=== PATIENT | female | born 1940 | race Hispanic/Latino ===

== ENCOUNTER 2023-09-01 02:16 | Inpatient (IN) | payer MEDICAID, SELFPAY ==
[2023-09-01 03:33] VITALS: BMI 22.6
[2023-09-01] MEDS: Morphine 4 MG/ML VIAL SLOW IVP PRN ×4 (03:51→21:16)
[2023-09-01] MEDS: Sodium Chloride 0.9% 1,000 ML IV SCH ×2 (03:55→15:30)
[2023-09-01] MEDS ORDERED: Ipratropium/Albuterol 3 ML NEB NEB PRN (08:02)
[2023-09-01] MEDS ORDERED: Dextrose 50% Abboject 50 ML SYRINGE SLOW IVP PRN (08:02)
[2023-09-01] MEDS ORDERED: Dextrose 5% in Water 1,000 ML IV PRN (08:02)
[2023-09-01] MEDS ORDERED: Acetaminophen 325 MG TAB PO PRN (08:02)
[2023-09-01] MEDS ORDERED: Glucagon 1 MG/ML KIT IM PRN (08:02)
[2023-09-01] MEDS ORDERED: Ondansetron ODT 4 MG TAB PO PRN (08:02)
[2023-09-01] MEDS ORDERED: FLU VACC QS2023(65UP)/MF59C/PF 60 MCG/0.5 ML SYRINGE IM ONE (09:00)
[2023-09-01 10:06] LABS: #Monocytes 0.8 thou/uL (0.11-0.59); #Neutrophils 6.6 thou/uL (1.40-6.50); %Basophils 0.2 % (0.0-1.0); %Eosinophils 0.1 % (0.0-10.0); %Lymphocytes 11.7 % (21.0-51.0); %Monocytes 9.6 % (0.0-10.0); Hematocrit 30.7 % (36.0-47.0); Hemoglobin 9.7 g/dL (12.0-16.0); Mean Corpuscular HGB CONC 31.6 g/dL (32.0-36.0); Mean Corpuscular Hemoglobin 26.6 pg (27.0-31.0); Mean Corpuscular Volume 84.3 fl (78.0-98.0); Mean Platelet Volume 12.2 fL (7.4-10.4); Platelet Count 157 10x3/uL (130-400); RBC Distribution Width 14.7 % (11.5-14.5); Red Blood Cell (RBC) Count 3.64 mill/uL (4.20-5.40); White Blood Cell (WBC) Count 8.5 10x3/uL (4.8-10.8)
[2023-09-01 10:30] LABS: ALT (SGPT) 86 U/L (8-55); AST (SGOT) 170 U/L (5-34); Albumin 3.5 g/dL (3.4-4.8); Alkaline Phosphatase 227 U/L (40-110); Anion Gap 12 mmol/L (10-20); BUN (Urea Nitrogen) 28 mg/dL (9.8-20.1); Bilirubin, Total 2.3 mg/dL (0.2-1.2); Calc. Creatinine Clearance 30 mL/min (70-130); Calcium 8.7 mg/dL (7.8-10.44); Carbon Dioxide 25 mmol/L (23-31); Chloride 106 mmol/L (98-107); Estimated GFR 36; Globulin 2.4 g/dL (2.4-3.5); Glucose 95 mg/dL (83-110); Potassium 4.1 mmol/L (3.5-5.1); Protein, Total 5.9 g/dL (5.8-8.1); Sodium 139 mmol/L (136-145)
[2023-09-01] MEDS ORDERED: TETANUS, DIPHTHERIA TOX,ADULT (TDVAX) 0.5 ML VIAL IM ONE (12:00)
[2023-09-01] MEDS ORDERED: Labetalol HCl 100 MG/20 ML VIAL SLOW IVP PRN (18:43)
[2023-09-01] MEDS ORDERED: Metoprolol Tartrate 5 MG (5 mL) VIAL IVP PRN (19:59)
[2023-09-01 20:26] LABS: #Monocytes 0.9 thou/uL (0.11-0.59); %Basophils 0.1 % (0.0-1.0); %Eosinophils 0.1 % (0.0-10.0); %Lymphocytes 8.3 % (21.0-51.0); %Monocytes 8.9 % (0.0-10.0); %Neutrophils 82.2 % (42.0-75.0); Hematocrit 28.9 % (36.0-47.0); Hemoglobin 9.2 g/dL (12.0-16.0); Mean Corpuscular HGB CONC 31.8 g/dL (32.0-36.0); Mean Corpuscular Volume 84.8 fl (78.0-98.0); Platelet Count 146 10x3/uL (130-400); RBC Distribution Width 14.8 % (11.5-14.5); Red Blood Cell (RBC) Count 3.41 mill/uL (4.20-5.40); White Blood Cell (WBC) Count 9.8 10x3/uL (4.8-10.8)
[2023-09-01 20:46] LABS: Lactic Acid 0.8 mmol/L (0.5-2.2)
[2023-09-01 20:56] LABS: Anion Gap 13 mmol/L (10-20); BUN (Urea Nitrogen) 29 mg/dL (9.8-20.1); Calc. Creatinine Clearance 32 mL/min (70-130); Calcium 8.5 mg/dL (7.8-10.44); Carbon Dioxide 22 mmol/L (23-31); Chloride 109 mmol/L (98-107); Estimated GFR 40; Glucose 91 mg/dL (83-110); Potassium 4.1 mmol/L (3.5-5.1); Sodium 140 mmol/L (136-145)
[2023-09-01] MEDS ORDERED: OLANZapine 10 MG VIAL IM SCH (21:00)
[2023-09-01] MEDS ORDERED: Sterile Water 10 ML VIAL FS SCH (21:15)
[2023-09-01 21:33] LABS: ALT (SGPT) 87 U/L (8-55); AST (SGOT) 90 U/L (5-34); Albumin 3.5 g/dL (3.4-4.8); Alkaline Phosphatase 208 U/L (40-110); Bilirubin, Direct 1.2 mg/dL (0.1-0.3); Bilirubin, Total 2.1 mg/dL (0.2-1.2); Protein, Total 5.7 g/dL (5.8-8.1)
[2023-09-01] MEDS: Atorvastatin Calcium 20 MG TAB PO SCH (21:52)
[2023-09-02] MEDS: Morphine 4 MG/ML VIAL SLOW IVP PRN ×2 (01:03→08:57)
[2023-09-02 04:52] LABS: #Monocytes 0.9 thou/uL (0.11-0.59); #Neutrophils 8.3 thou/uL (1.40-6.50); %Basophils 0.2 % (0.0-1.0); %Eosinophils 0.2 % (0.0-10.0); %Lymphocytes 12.1 % (21.0-51.0); %Monocytes 8.4 % (0.0-10.0); %Neutrophils 78.7 % (42.0-75.0); Hematocrit 30.2 % (36.0-47.0); Hemoglobin 9.4 g/dL (12.0-16.0); Mean Corpuscular HGB CONC 31.1 g/dL (32.0-36.0); Mean Corpuscular Volume 86.8 fl (78.0-98.0); Mean Platelet Volume 12.4 fL (7.4-10.4); Platelet Count 155 10x3/uL (130-400); RBC Distribution Width 15.1 % (11.5-14.5); Red Blood Cell (RBC) Count 3.48 mill/uL (4.20-5.40); White Blood Cell (WBC) Count 10.6 10x3/uL (4.8-10.8)
[2023-09-02 05:07] LABS: Hemoglobin A1c 5.7 % (4.0-6.0)
[2023-09-02 05:27] LABS: ALT (SGPT) 82 U/L (8-55); AST (SGOT) 64 U/L (5-34); Albumin 3.5 g/dL (3.4-4.8); Alkaline Phosphatase 212 U/L (40-110); Anion Gap 13 mmol/L (10-20); BUN (Urea Nitrogen) 31 mg/dL (9.8-20.1); Calc. Creatinine Clearance 32 mL/min (70-130); Calcium 8.6 mg/dL (7.8-10.44); Carbon Dioxide 20 mmol/L (23-31); Cardiac Risk 3.4 (Less than 4.5); Chloride 110 mmol/L (98-107); Cholesterol 182 mg/dl (< 200 Desired); Estimated GFR 40; Globulin 2.4 g/dL (2.4-3.5); Glucose 77 mg/dL (83-110); HDL Cholesterol 54 mg/dL (>60 Neg Risk); Iron Binding Capacity, Total 283 mcg/dL (265-497); LDL Cholesterol, Calculated 107 mg/dL; Potassium 4.3 mmol/L (3.5-5.1); Protein, Total 5.9 g/dL (5.8-8.1); Sodium 139 mmol/L (136-145); Triglycerides 107 mg/dL (Less than 150)
[2023-09-02 05:33] LABS: Bilirubin, Total 1.7 mg/dL (0.2-1.2)
[2023-09-02 05:44] LABS: Ferritin 78.81 ng/mL (10-291); Thyroid Stimulating Hormone 3.0438 uIU/mL (0.35-4.94)
[2023-09-02 05:51] LABS: Iron 26 ug/dL (50-170); Iron Binding Capacity, Total 274 mcg/dL (265-497)
[2023-09-02 06:27] LABS: Iron 24 ug/dL (50-170)
[2023-09-02] MEDS: Aspirin 300 MG Suppository PR SCH (08:56)
[2023-09-02] MEDS: Sodium Chloride 0.9% 1,000 ML IV SCH (09:04)
[2023-09-02 09:55] LABS: Bilirubin Negative (Negative); Blood, Urine Negative (Negative); Clarity Clear (Clear); Glucose, Urine (Dipstick) Normal (Negative); Ketone, Urine 10 mg/dL (Negative); Leukocyte Negative Leu/uL (Negative); Nitrite Negative (Negative); Protein, Urine (Dipstick) Negative (Neg-Trace); RBC/HPF 0-3 HPF (0-3); Specific Gravity, Urine 1.016 (1.002-1.036); Squamous Epithelial None Seen HPF (0-3); Urobilinogen 3 mg/dL (Less than 2); WBC/HPF 0-3 HPF (0-3); pH, Urine 5.5 (5.0-9.0)
[2023-09-02 09:59] LABS: Bacteria/HPF 1+ HPF (None Seen)
[2023-09-02] MEDS ORDERED: Lorazepam 2 MG/ML VIAL SLOW IVP SCH (11:45)
[2023-09-02] MEDS ORDERED: dilTIAZem 125 MG in Sodium Chloride 0.9% 100 ML IVPB SCH (13:30)
[2023-09-02] MEDS: dilTIAZem 125 MG, Admixture Fee 1 EACH in Sodium Chloride 0.9% 100 ML IVPB SCH (14:55)
[2023-09-02] MEDS: Heparin 5,000 UNITS/ML VIAL SC SCH (21:26)
[2023-09-03] MEDS: Atorvastatin Calcium 20 MG TAB PO SCH ×2 (01:09→20:13)
[2023-09-03] MEDS: Sodium Chloride 0.9% 1,000 ML IV SCH ×2 (02:38→15:21)
[2023-09-03] MEDS: Acetaminophen/Codeine 30-300mg Tablet PO PRN ×2 (02:50→11:00)
[2023-09-03 05:06] LABS: #Monocytes 0.6 thou/uL (0.11-0.59); %Basophils 0.1 % (0.0-1.0); %Eosinophils 0.3 % (0.0-10.0); %Lymphocytes 10.7 % (21.0-51.0); %Monocytes 7.2 % (0.0-10.0); %Neutrophils 81.5 % (42.0-75.0); Hematocrit 28.8 % (36.0-47.0); Mean Corpuscular HGB CONC 31.3 g/dL (32.0-36.0); Mean Corpuscular Hemoglobin 26.9 pg (27.0-31.0); Mean Corpuscular Volume 86.2 fl (78.0-98.0); Mean Platelet Volume 12.5 fL (7.4-10.4); Platelet Count 176 10x3/uL (130-400); RBC Distribution Width 15.1 % (11.5-14.5); Red Blood Cell (RBC) Count 3.34 mill/uL (4.20-5.40); White Blood Cell (WBC) Count 8.6 10x3/uL (4.8-10.8)
[2023-09-03 05:25] LABS: Anion Gap 13 mmol/L (10-20); BUN (Urea Nitrogen) 33 mg/dL (9.8-20.1); Calc. Creatinine Clearance 40 mL/min (70-130); Calcium 8.4 mg/dL (7.8-10.44); Carbon Dioxide 21 mmol/L (23-31); Chloride 114 mmol/L (98-107); Estimated GFR 52; Glucose 83 mg/dL (83-110); Potassium 3.9 mmol/L (3.5-5.1); Sodium 144 mmol/L (136-145)
[2023-09-03] MEDS: Aspirin 300 MG Suppository PR SCH (10:17)
[2023-09-03] MEDS: Heparin 5,000 UNITS/ML VIAL SC SCH ×2 (10:17→20:13)
[2023-09-03] MEDS: dilTIAZem 125 MG, Admixture Fee 1 EACH in Sodium Chloride 0.9% 100 ML IVPB SCH (15:20)
[2023-09-03] MEDS: Morphine 4 MG/ML VIAL SLOW IVP PRN (17:42)
[2023-09-03] MEDS: HYDROcodone/Acetaminophen 5/325 mg Tablet PO PRN (20:16)
[2023-09-04] MEDS: Morphine 4 MG/ML VIAL SLOW IVP PRN ×2 (03:20→10:26)
[2023-09-04] MEDS: Sodium Chloride 0.9% 1,000 ML IV SCH ×2 (03:21→17:26)
[2023-09-04] MEDS: Aspirin 300 MG Suppository PR SCH (10:08)
[2023-09-04] MEDS: Heparin 5,000 UNITS/ML VIAL SC SCH ×2 (10:09→21:41)
[2023-09-04] MEDS: dilTIAZem 125 MG, Admixture Fee 1 EACH in Sodium Chloride 0.9% 100 ML IVPB SCH (13:54)
[2023-09-04] MEDS: HYDROcodone/Acetaminophen 5/325 mg Tablet PO PRN (15:13)
[2023-09-04] MEDS: Morphine 2 MG/ML VIAL SLOW IVP PRN (16:21)
[2023-09-04] MEDS ORDERED: Digoxin 0.5 MG/2 ML AMP SLOW IVP SCH ×2 (17:00→18:00)
[2023-09-04] MEDS: Ketorolac Tromethamine 30 MG (1 mL) VIAL IVP PRN (21:40)
[2023-09-04] MEDS: Atorvastatin Calcium 20 MG TAB PO SCH (21:41)
[2023-09-04] MEDS: Ondansetron PF 4 MG/2 ML Vial IVP PRN (23:16)
[2023-09-05] MEDS: HYDROcodone/Acetaminophen 5/325 mg Tablet PO PRN (00:17)
[2023-09-05 01:24] LABS: #Monocytes 0.5 thou/uL (0.11-0.59); #Neutrophils 8.3 thou/uL (1.40-6.50); %Basophils 0.2 % (0.0-1.0); %Eosinophils 0.2 % (0.0-10.0); %Lymphocytes 6.3 % (21.0-51.0); %Monocytes 5.4 % (0.0-10.0); %Neutrophils 87.2 % (42.0-75.0); Hematocrit 29.1 % (36.0-47.0); Hemoglobin 9.1 g/dL (12.0-16.0); Mean Corpuscular HGB CONC 31.3 g/dL (32.0-36.0); Mean Corpuscular Hemoglobin 26.8 pg (27.0-31.0); Mean Corpuscular Volume 85.8 fl (78.0-98.0); Mean Platelet Volume 11.4 fL (7.4-10.4); Platelet Count 200 10x3/uL (130-400); Red Blood Cell (RBC) Count 3.39 mill/uL (4.20-5.40); White Blood Cell (WBC) Count 9.6 10x3/uL (4.8-10.8)
[2023-09-05 02:45] LABS: Anion Gap 20 mmol/L (10-20); BUN (Urea Nitrogen) 18 mg/dL (9.8-20.1); Calc. Creatinine Clearance 49 mL/min (70-130); Calcium 8.7 mg/dL (7.8-10.44); Carbon Dioxide 16 mmol/L (23-31); Chloride 114 mmol/L (98-107); Estimated GFR 68; Glucose 104 mg/dL (83-110); Potassium 3.8 mmol/L (3.5-5.1); Sodium 146 mmol/L (136-145)
[2023-09-05 02:52] LABS: Troponin I 0.168 ng/mL (< 0.028)
[2023-09-05] MEDS: dilTIAZem 125 MG, Admixture Fee 1 EACH in Sodium Chloride 0.9% 100 ML IVPB SCH (03:03)
[2023-09-05] MEDS ORDERED: Nitroglycerin 2% Ointment 1 INCH/1 GM Packet TOP PRN (03:56)
[2023-09-05] MEDS: Morphine 2 MG/ML VIAL SLOW IVP PRN (04:00)
[2023-09-05 05:55] LABS: Critical Call Chem Troponin I NUR.AC18@0554
[2023-09-05] MEDS: Sodium Chloride 0.9% 1,000 ML IV SCH (06:14)
[2023-09-05 07:35] LABS: Critical Call Chem Troponin I RESULT DECREASING; Troponin I 0.231 ng/mL (< 0.028)
[2023-09-05] MEDS: Ketorolac Tromethamine 30 MG (1 mL) VIAL IVP PRN (08:25)
[2023-09-05] MEDS: Morphine 4 MG/ML VIAL SLOW IVP PRN ×3 (10:44→21:38)
[2023-09-05] MEDS: Heparin 5,000 UNITS/ML VIAL SC SCH ×2 (10:45→21:39)
[2023-09-05] MEDS: 1/2 NS w/Potassium 20 mEq 1,000 ML IV SCH ×2 (10:46→22:05)
[2023-09-05] MEDS: Digoxin 0.5 MG/2 ML AMP SLOW IVP SCH (11:42)
[2023-09-05] MEDS: Aspirin 300 MG Suppository PR SCH (13:57)
[2023-09-05] MEDS: Acetaminophen 650 MG Suppository PR SCH ×3 (13:58→21:43)
[2023-09-05] MEDS: Acetaminophen 500 MG TAB PO SCH ×2 (13:58→15:57)
[2023-09-05] MEDS: Atorvastatin Calcium 20 MG TAB PO SCH (21:37)
[2023-09-05] MEDS: Ondansetron PF 4 MG/2 ML Vial IVP PRN (21:39)
[2023-09-06] MEDS: Ketorolac Tromethamine 30 MG (1 mL) VIAL IVP PRN ×2 (03:50→08:39)
[2023-09-06 06:26] LABS: #Eosinphils 0.1 thou/uL (0.0-0.7); #Monocytes 0.4 thou/uL (0.11-0.59); #Neutrophils 7.2 thou/uL (1.40-6.50); %Basophils 0.1 % (0.0-1.0); %Eosinophils 0.7 % (0.0-10.0); %Lymphocytes 8.1 % (21.0-51.0); %Monocytes 5.2 % (0.0-10.0); %Neutrophils 85.5 % (42.0-75.0); Hematocrit 30.8 % (36.0-47.0); Hemoglobin 9.6 g/dL (12.0-16.0); Mean Corpuscular HGB CONC 31.2 g/dL (32.0-36.0); Mean Corpuscular Hemoglobin 26.7 pg (27.0-31.0); Mean Corpuscular Volume 85.8 fl (78.0-98.0); Mean Platelet Volume 11.3 fL (7.4-10.4); Platelet Count 215 10x3/uL (130-400); RBC Distribution Width 14.8 % (11.5-14.5); Red Blood Cell (RBC) Count 3.59 mill/uL (4.20-5.40); White Blood Cell (WBC) Count 8.4 10x3/uL (4.8-10.8)
[2023-09-06 06:36] LABS: ALT (SGPT) 32 U/L (8-55); AST (SGOT) 29 U/L (5-34); Albumin 3.3 g/dL (3.4-4.8); Alkaline Phosphatase 157 U/L (40-110); Anion Gap 18 mmol/L (10-20); BUN (Urea Nitrogen) 19 mg/dL (9.8-20.1); Bilirubin, Total 1.3 mg/dL (0.2-1.2); Calc. Creatinine Clearance 49 mL/min (70-130); Calcium 8.5 mg/dL (7.8-10.44); Carbon Dioxide 16 mmol/L (23-31); Chloride 114 mmol/L (98-107); Estimated GFR 67; Globulin 2.4 g/dL (2.4-3.5); Glucose 78 mg/dL (83-110); Potassium 4.5 mmol/L (3.5-5.1); Protein, Total 5.7 g/dL (5.8-8.1); Sodium 143 mmol/L (136-145)
[2023-09-06] MEDS: Aspirin 300 MG Suppository PR SCH (08:36)
[2023-09-06] MEDS: Acetaminophen 650 MG Suppository PR SCH ×4 (08:37→21:44)
[2023-09-06] MEDS: Digoxin 0.5 MG/2 ML AMP SLOW IVP SCH (08:41)
[2023-09-06] MEDS: Heparin 5,000 UNITS/ML VIAL SC SCH ×2 (08:48→19:56)
[2023-09-06] MEDS: 1/2 NS w/Potassium 20 mEq 1,000 ML IV SCH ×2 (10:46→16:34)
[2023-09-06] MEDS ORDERED: Vasopressin 20 UNITS/ML VIAL ONE (11:43)
[2023-09-06] MEDS ORDERED: Etomidate 40 MG (20 mL) VIAL ONE (11:44)
[2023-09-06] MEDS ORDERED: Lidocaine 1% PF 5 ML VIAL ONE (11:52)
[2023-09-06] MEDS ORDERED: fentaNYL 50 mcg/mL 1 mL Vial ONE ×4 (11:53→14:41)
[2023-09-06] MEDS ORDERED: Sodium Chloride 0.9% 100 ML ONE (12:53)
[2023-09-06] MEDS ORDERED: CEFAZOLIN 2 GM VIAL ONE (12:53)
[2023-09-06] MEDS ORDERED: Ondansetron PF 4 MG/2 ML Vial ONE (13:23)
[2023-09-06] MEDS ORDERED: Dexamethasone 4 mg/ml Vial ONE (13:23)
[2023-09-06] MEDS ORDERED: Ondansetron HCl/PF 4 MG/2 ML Vial IVP PRN (13:39)
[2023-09-06] MEDS ORDERED: Morphine Sulfate 2 MG/ML SYRINGE SLOW IVP PRN (13:39)
[2023-09-06] MEDS ORDERED: Promethazine HCl 25 MG/ML VIAL IM PRN (13:39)
[2023-09-06] MEDS ORDERED: [UNRECOGNIZED DRUG - REMARK] FS PRN (14:15)
[2023-09-06] MEDS: Morphine 2 MG/ML VIAL SLOW IVP PRN ×2 (16:08→23:12)
[2023-09-06] MEDS: Morphine 4 MG/ML VIAL SLOW IVP PRN (19:55)
[2023-09-06] MEDS: Atorvastatin Calcium 20 MG TAB PO SCH (19:56)
[2023-09-06] MEDS: CEFAZOLIN 2 GM in Sodium Chloride 0.9% 100 ML IVPB SCH (19:57)
[2023-09-07] MEDS: CEFAZOLIN 2 GM in Sodium Chloride 0.9% 100 ML IVPB SCH (03:19)
[2023-09-07] MEDS: 1/2 NS w/Potassium 20 mEq 1,000 ML IV SCH ×2 (03:19→12:39)
[2023-09-07] MEDS: Morphine 4 MG/ML VIAL SLOW IVP PRN (03:19)
[2023-09-07] MEDS: Morphine 2 MG/ML VIAL SLOW IVP PRN ×2 (05:54→09:06)
[2023-09-07 06:09] LABS: #Monocytes 0.6 thou/uL (0.11-0.59); #Neutrophils 8.4 thou/uL (1.40-6.50); %Lymphocytes 4.5 % (21.0-51.0); %Monocytes 6.3 % (0.0-10.0); %Neutrophils 88.6 % (42.0-75.0); Hemoglobin 8.8 g/dL (12.0-16.0); Mean Corpuscular HGB CONC 31.4 g/dL (32.0-36.0); Mean Corpuscular Hemoglobin 27.2 pg (27.0-31.0); Mean Corpuscular Volume 86.4 fl (78.0-98.0); Mean Platelet Volume 12.2 fL (7.4-10.4); Platelet Count 211 10x3/uL (130-400); RBC Distribution Width 15.1 % (11.5-14.5); Red Blood Cell (RBC) Count 3.24 mill/uL (4.20-5.40); White Blood Cell (WBC) Count 9.5 10x3/uL (4.8-10.8)
[2023-09-07 06:49] LABS: Anion Gap 16 mmol/L (10-20); BUN (Urea Nitrogen) 28 mg/dL (9.8-20.1); Calc. Creatinine Clearance 36 mL/min (70-130); Calcium 8.6 mg/dL (7.8-10.44); Carbon Dioxide 18 mmol/L (23-31); Chloride 114 mmol/L (98-107); Estimated GFR 46; Glucose 111 mg/dL (83-110); Sodium 143 mmol/L (136-145)
[2023-09-07] MEDS: Aspirin 300 MG Suppository PR SCH (09:04)
[2023-09-07] MEDS: Digoxin 0.5 MG/2 ML AMP SLOW IVP SCH (09:05)
[2023-09-07] MEDS: Heparin 5,000 UNITS/ML VIAL SC SCH ×2 (09:05→22:11)
[2023-09-07] MEDS: Acetaminophen 650 MG Suppository PR SCH ×4 (10:50→22:11)
[2023-09-07] MEDS: Atorvastatin Calcium 20 MG TAB PO SCH (22:11)
[2023-09-08] MEDS: Metoprolol Tartrate 5 MG (5 mL) VIAL IVP SCH ×3 (09:49→22:26)
[2023-09-08] MEDS: Digoxin 0.5 MG/2 ML AMP SLOW IVP SCH (09:50)
[2023-09-08] MEDS: Acetaminophen 650 MG Suppository PR SCH ×4 (09:53→23:32)
[2023-09-08] MEDS: Aspirin 300 MG Suppository PR SCH (09:53)
[2023-09-08] MEDS: Heparin 5,000 UNITS/ML VIAL SC SCH ×2 (09:53→22:26)
[2023-09-08] MEDS: Ondansetron PF 4 MG/2 ML Vial IVP PRN (12:18)
[2023-09-08] MEDS: Morphine 2 MG/ML VIAL SLOW IVP PRN (18:33)
[2023-09-08] MEDS: Atorvastatin Calcium 20 MG TAB PO SCH (23:34)
[2023-09-09] MEDS: Morphine 2 MG/ML VIAL SLOW IVP PRN ×2 (03:22→21:48)
[2023-09-09] MEDS: Metoprolol Tartrate 5 MG (5 mL) VIAL IVP SCH ×4 (03:22→21:49)
[2023-09-09] MEDS: Acetaminophen 650 MG Suppository PR SCH ×3 (08:59→16:24)
[2023-09-09] MEDS: Aspirin 300 MG Suppository PR SCH (09:00)
[2023-09-09] MEDS: Digoxin 0.5 MG/2 ML AMP SLOW IVP SCH (09:01)
[2023-09-09] MEDS: Heparin 5,000 UNITS/ML VIAL SC SCH ×2 (09:27→22:02)
[2023-09-09] MEDS ORDERED: dilTIAZem 125 MG in Sodium Chloride 0.9% 100 ML IVPB SCH (13:00)
[2023-09-09] MEDS: Carbidopa/Levodopa 25-250 mg Tablet PO SCH ×2 (15:21→21:49)
[2023-09-09] MEDS: Atorvastatin Calcium 20 MG TAB PO SCH (21:50)
[2023-09-09] MEDS: QUEtiapine 25 MG TAB PO SCH (21:50)
[2023-09-10] MEDS: Acetaminophen 650 MG Suppository PR SCH ×5 (00:06→22:09)
[2023-09-10] MEDS: Metoprolol Tartrate 5 MG (5 mL) VIAL IVP SCH ×4 (02:18→21:30)
[2023-09-10 04:56] LABS: Anion Gap 12 mmol/L (10-20); BUN (Urea Nitrogen) 29 mg/dL (9.8-20.1); Calc. Creatinine Clearance 49 mL/min (70-130); Calcium 8.8 mg/dL (7.8-10.44); Carbon Dioxide 26 mmol/L (23-31); Chloride 112 mmol/L (98-107); Estimated GFR 68; Glucose 77 mg/dL (83-110); Potassium 4.1 mmol/L (3.5-5.1); Sodium 146 mmol/L (136-145)
[2023-09-10] MEDS: Amlodipine 5 MG TAB PO SCH (09:24)
[2023-09-10] MEDS: Carbidopa/Levodopa 25-250 mg Tablet PO SCH ×3 (09:24→21:28)
[2023-09-10] MEDS: Digoxin 0.5 MG/2 ML AMP SLOW IVP SCH (09:26)
[2023-09-10] MEDS: Heparin 5,000 UNITS/ML VIAL SC SCH ×2 (09:29→21:27)
[2023-09-10] MEDS: Aspirin 300 MG Suppository PR SCH (09:30)
[2023-09-10] MEDS: QUEtiapine 25 MG TAB PO SCH ×2 (13:17→21:28)
[2023-09-10] MEDS: Morphine 2 MG/ML VIAL SLOW IVP PRN (21:26)
[2023-09-10] MEDS: Atorvastatin Calcium 20 MG TAB PO SCH (21:28)
[2023-09-11] MEDS: Morphine 4 MG/ML VIAL SLOW IVP PRN (00:09)
[2023-09-11] MEDS: Metoprolol Tartrate 5 MG (5 mL) VIAL IVP SCH ×2 (03:02→16:09)
[2023-09-11] MEDS ORDERED: Metoprolol Tartrate 5 MG (5 mL) VIAL IVP PRN (08:15)
[2023-09-11] MEDS ORDERED: Metoprolol Tartrate 25 MG TAB PO SCH (09:00)
[2023-09-11] MEDS: Carbidopa/Levodopa 25-250 mg Tablet PO SCH ×2 (09:42→17:31)
[2023-09-11] MEDS: Amlodipine 5 MG TAB PO SCH (09:42)
[2023-09-11] MEDS: Aspirin 300 MG Suppository PR SCH (09:43)
[2023-09-11] MEDS: Acetaminophen 650 MG Suppository PR SCH ×3 (09:44→18:07)
[2023-09-11] MEDS: Digoxin 0.5 MG/2 ML AMP SLOW IVP SCH (09:44)
[2023-09-11] MEDS: Heparin 5,000 UNITS/ML VIAL SC SCH (09:46)
[2023-09-11] MEDS: QUEtiapine 25 MG TAB PO SCH (16:05)
[2023-09-11 17:20] VITALS: BP 153/96; TEMP 98.1
== END 2023-09-11 18:10 | disposition home or self-care (01) | DRG 480 ==
LOC: SURG B 02:16 → 2SE 16:47
PROVIDERS: ADMIT Surgery; ATTEND Internal Medicine
PROC: 4A00X4Z Measurement of Central Nervous Electrical Activity, External Approach (ICD-10-PCS; 2023-09-01)
PROC: 0QS704Z Reposition Left Upper Femur with Internal Fixation Device, Open Approach (ICD-10-PCS; principal; 2023-09-06)
PROC: 0PSJXZZ Reposition Left Radius, External Approach (ICD-10-PCS; 2023-09-06)
PROC: 3E033XZ Introduction of Vasopressor into Peripheral Vein, Percutaneous Approach (ICD-10-PCS; 2023-09-06)
DX: S72.142A Displaced intertrochanteric fracture of left femur, initial encounter for closed fracture (principal); I21.A1 Myocardial infarction type 2; I63.9 Cerebral infarction, unspecified; S52.502A Unspecified fracture of the lower end of left radius, initial encounter for closed fracture; E78.00 Pure hypercholesterolemia, unspecified; N18.9 Chronic kidney disease, unspecified; I12.9 Hypertensive chronic kidney disease with stage 1 through stage 4 chronic kidney disease, or unspecified chronic kidney disease; Z66 Do not resuscitate; D32.0 Benign neoplasm of cerebral meninges; N18.30 Chronic kidney disease, stage 3 unspecified; G30.9 Alzheimer's disease, unspecified; I48.0 Paroxysmal atrial fibrillation; F02.80 Dementia in other diseases classified elsewhere, unspecified severity, without behavioral disturbance, psychotic disturbance, mood disturbance, and anxiety; Z86.73 Personal history of transient ischemic attack (TIA), and cerebral infarction without residual deficits
CPT/HCPCS: 36415; 36416; 70450; 70551; 71045; 72125; 80048; 80053; 80061; 81001; 82728; 83036; 83540; 83550; 83605; 83735; 84443; 84484; 85025; 90714; 93005; 93010; 93306; 93880; 95711; 95819; C1713; J1100; J1160; J1611; J1644; J1885; J2060; J2270; J2272; J2405; J3010; J3480; J3490; J7050; J7999